=== PATIENT | female | born 1985 | race Caucasian/White ===

== ENCOUNTER 2020-02-24 01:37 | Emergency (ER) | payer OTHER ==
[~2020-02-24] VITALS: Wt 108.9 kg
[~2020-02-24 01:37] MED LIST: BIRTH CONTROL; DAYPRO600 M1 PO; KEFLEX500 MG PO; MOTRIN600 MG PO; ZANTAC150 MG PO; ZOFRAN4 MG PO
[2020-02-24] MEDS ORDERED: NORCO 5-325 TA1 EACH PO (03:39)
== END 2020-02-24 04:21 | disposition home or self-care (01) ==
LOC: ED 01:37
DX: T23.001A Burn of unspecified degree of right hand, unspecified site, initial encounter (principal); T24.019A Burn of unspecified degree of unspecified thigh, initial encounter; T24.031A Burn of unspecified degree of right lower leg, initial encounter; X08.8XXA Exposure to other specified smoke, fire and flames, initial encounter; Y93.89 Activity, other specified; Y92.89 Other specified places as the place of occurrence of the external cause; Y99.8 Other external cause status

== ENCOUNTER → 2020-04-19 | Outpatient (CLI) | payer OTHER ==
[~2020-04-19] MED LIST changes: +NORCO 5-325 TA1 EACH PO
== END | disposition home or self-care (01) ==
LOC: US 12:28
PROVIDERS: ATTEND Nurse Practitioner Women's Health
DX: Z53.8 Procedure and treatment not carried out for other reasons (principal); Z97.5 Presence of (intrauterine) contraceptive device